=== PATIENT | female | born 1960 | race Caucasian/White ===

== ENCOUNTER 2017-10-25 06:34 | Outpatient (CLI) | payer OTHER ==
[~2017-10-25] VITALS: Ht 172.7 cm; Wt 60.0 kg
--- NOTE | ~2017-10-25 | TEE ---
PATIENT:ERICK STERLING MEDICAL RECORD: [id number] LOCATION:D.[facility] AGE OF PATIENT: 57 ADMISSION DATE: 10/25/17 SEX: F REFERRING PHYSICIAN: INTERPRETING PHYSICIAN: KAREN LUNDBERG MD TRANSESOPHAGEAL ECHOCARDIOGRAM Date: 10/25/17 ISIDRA CHARGE Y INDICATIONS: AFIB, ASSESS FOR CLOTS PRE-CARDIOVERSION PREMEDICATIONS: PATIENT'S RESPONSE PROCEDURE DOPPLER MEASUREMENTS: LVIT LA PA RA LVOT RVOT Asc. Ao AV Gradient Peak AV Mean AV Area MV Gradient Peak MV Mean MV Area INTERPRETATION: Doppler: 2-D: NO CLOTS SEEEN COLOR FLOW DOPPLER NORMAL SALINE STUDY: MISCELLANOUS: DIAGNOSIS: PLAN: PROCEED WITH CARDIOVERSION Telecommunications Analyst:Hector Lundberg Material Attendant: Christopher ELLINGTON COMMENTS: DATE OF SERVICE: PROCEDURES PERFORMED: Transesophageal echocardiogram and elective cardioversion. DESCRIPTION OF PROCEDURE: The patient was brought into the cardiac catheterization lab in stable condition in supine position on the gurney. The patient had anterior and posterior pads placed and topical anesthetic given initially for a transesophageal echocardiogram. We were able to advance the TRANSESOPHAGEAL ECHOCARDIOGRAM REPORT [id number] ERICK STERLING transesophageal probe into the mid esophageal level at 30 cm and visualized the left atrial appendage without any difficulty. We were able to visualize and document pulse wave activity greater than 50 and there was no Rouleaux formation or spontaneous echo contrast visualized and that portion of the exam was terminated. We were then able to turn our attention to cardioversion. We were able to sedate the patient with 4 of Versed and 50 of fentanyl and 100 joules of biphasic energy past, the patient initially converted into a sinus rhythm for about 1 minute and then reverted to atrial flutter. We then administered Corvert and verified QT interval prolongation and went to 200 joules of biphasic energy and we were unable to convert into a rhythm. We then readjusted the pads and applied counter pressure and went to 275 joules in biphasic fashion. However, we were still unsuccessful in converting to a sinus rhythm and the procedure was terminated unsuccessfully. IMPRESSION: The patient has atrial flutter with unsuccessful attempt at cardioversion. We will continue anticoagulation and refer to electrophysiology for advanced therapies for reversion to sinus rhythm. TRANSINT:[id number] Voice Confirmation ID: [id number] DOCUMENT ID: [id number] at [id number] CC: [id number] DICTATION DATE: 10/25/17905 FINGERPRINTER: 10/25/17 1140 DEP CLI 10/25/17 [place] [id number] [place] [id number]
--- NOTE | ~2017-10-25 | HEMODYNAMI ---
PATIENT:ERICK STERLING MEDICAL RECORD: [id number] : 62 LOCATION:D.[facility] ADMISSION DATE: 10/25/17 Generatedon:10/25/20179:17 Patient name: ERICK STERLING Patient #: [id number] SSN: : 1960 Date of study: 10/25/2017 Page: Of Hemodynamic Procedure Report Patient Data Patient Demographics Procedure consent was obtained First Name: ERICK Gender: Female Last Name: HALLIE : 1960 Patient #: [id number] Age: 57 year(s) Race: Unknown Additional ID: [id number] Contact details Address: [place] [address] State: [place] City: [place] Zip code: [address] Admission Admission Data Admission Date: 10/25/2017 Admission Time: 6:34 Procedure Procedure Types Cath Procedure Diagnostic Procedure Cardioversion External ISIDRA Sedation Charges Moderate Sedation up to 30 minutes Procedure Description Procedure Date Procedure Date: 10/25/2017 Procedure Start Time: 0:00 Procedure Staff Name Function Ayush Lundberg MD Performing Physician Farnaz Costa RT Monitor Marianne Pennington RT Scrub Alex Fernandez RN Nurse Franc Mcgill Relocation Manager Procedure Data Cath Procedure Fluoroscopy Diagnostic fluoroscopy Total fluoroscopy Time: 0 time: 0 min min Diagnostic fluoroscopy Total fluoroscopy dose: 0 dose: 0 mGy mGy Contrast Material Contrast Material Type Amount (ml) Isovue 300 0 Estimated blood loss: 0 ml Procedure Complications No complications Procedure Medications Medication Administration Route Dosage Versed I.V. 2 mg Fentanyl I.V. 25 mcg Versed I.V. 2 mg Fentanyl I.V. 25 mcg Versed I.V. 1 mg Versed I.V. 1 mg Corvert (1mg/100ml I.V. drip 0.5 mg NS) Versed I.V. 2 mg Versed I.V. 1 mg Versed I.V. 1 mg Oxygen etCO2 Nasal cannula 2 l/min unlisted medication unlisted medication Hemodynamics Rest Heart Rate: 99 (bpm) Snapshots Pre Cath Intra NCS Post Cath Vital Signs Time Heart Resp SPO2 etCO2 NIBP (mmHg) Rhythm Pain Sedation Rate (ipm) (%) (mmHg) Status Level (bpm) 8:22:10 95 19 98 0 124/81(88) A-Flutter 0 (11) 10(A) , No pain 8:27:09 104 18 95 24.1 Measuring A-Flutter 0 (11) 10(A) , No pain 8:27:50 95 29 98 12.8 Disturbed A-Flutter 0 (11) 10(A) , No pain 8:29:26 95 26 93 25.6 116/83(88) A-Flutter 0 (11) 10(A) , No pain 8:33:32 74 19 100 21.1 125/74(100) A-Flutter 0 (11) 10(A) , No pain 8:37:40 91 20 100 13.5 116/76(94) A-Flutter 0 (11) 9(A) , No pain 8:41:46 90 18 99 25.6 128/75(99) A-Flutter 0 (11) 9(A) , No pain 8:45:50 86 14 100 27.9 125/91(106) A-Flutter 0 (11) 9(A) , No pain 8:49:55 96 14 99 0 119/80(98) A-Flutter 0 (11) 9(A) , No pain 8:53:59 78 14 100 24.9 125/80(103) A-Flutter 0 (11) 9(A) , No pain 8:58:07 97 16 100 28.6 126/75(99) A-Flutter 0 (11) 9(A) , No pain 9:02:13 88 17 100 36.2 116/78(103) A-Flutter 0 (11) 10(A) , No pain Medications Time Medication Route Dose Verified Delivered Reason Notes Effective ness by by 8:20:56 Oxygen etCO2 2 Ayush Buffie used for Nasal l/min Tamika Fernandez floor service worker spring cannula 8:21:28 visc. gargle Ayush Buffie used for lidocaine Tamika Fernandez floor service worker spring 8:21:53 maalox gargle Ayush Buffie used for Tamika Fernandez floor service worker spring 8:29:01 Versed I.V. 2 mg Ayush Buffie for Norelsy Fernandez RN sedation 8:29:07 Fentanyl I.V. 25 mcg Ayush Buffie for Norelsy Fernandez RN sedation 8:31:44 Versed I.V. 2 mg Ayush Buffie for Norelsy Fernandez RN sedation 8:34:27 Fentanyl I.V. 25 mcg Ayush Buffie for Norelsy Fernandez RN sedation 8:34:32 Versed I.V. 1 mg Ayush Buffie for Norelsy Fernandez RN sedation 8:36:58 Versed I.V. 1 mg Ayush Buffie for Norelsy Fernandez RN sedation MD 8:43:03 Corvert I.V. 0.5 mg Ayush Buffie Per (1mg/100ml drip Tamika Fernandez RN physician NS) 8:49:44 Versed I.V. 2 mg Ayush Buffie for Norelsy Fernandez RN sedation 8:55:34 Versed I.V. 1 mg Ayush Buffie for Norelsy Fernandez RN sedation 9:57:10 Versed I.V. 1 mg Ayush Buffie for Norelsy Fernandez RN sedation Procedure Log Time Note 8:01:34 Informed consent obtained and on chart 8:01:39 Diagnostic Cath Status : Elective 8:02:19 Alex Fernandez RN sent for patient. Start room use. 8:02:20 Time tracking: Regular hours (M-F 7:00 - 5:00) 8:02:26 Plan of Care:Hemodynamics will remain stable., Cardiac rhythm will remain stable., Comfort level will be maintained., Respiratory function will remain adequate., Patient/ family verbilizes understanding of procedure., Procedure tolerated without complication., Recovers from procedure without complications.. 8:17:38 Patient received from Pre/Post Procedure Room to CCL 3 Alert and oriented. Tansferred to table in Supine position. 8:17:39 Warm blankets applied, and cely hugger turned on for patient comfort. 8:17:40 Correct patient and procedure confirmed by team. 8:17:40 ECG and BP/O2 sat monitors applied to patient. 8:20:56 Oxygen 2 l/min etCO2 Nasal cannula was administered by Alex Fernandez RN; used for procedure; 8:21:03 Vital chart was started 8:21:06 Baseline sample Acquired. 8:21:11 Rhythm: atrial flutter 8:21:13 Full Disclosure recording started 8:21:17 H&P Date Dictated: 10/25/2017 Within 30 days and on chart., H&P Addendum completed by physician on day of procedure. (MUST COMPLETE FOR ALL OUTPATIENTS). 8:21:19 Pre-procedure instructions explained to patient. 8:21:19 Pre-op teaching completed and patient verbalized understanding. 8:21:21 Family in waiting room. 8:21:22 Patient NPO since Midnight. 8:21:24 Is the patient allergic to Iodine/contrast media? No. 8:21:25 Was the patient premedicated? No 8:21:28 visc. lidocaine gargle was administered by lAex Fernandez RN; used for procedure; 8:21:53 maalox gargle was administered by Alex Fernandez RN; used for procedure; 8:22:21 Is patient on blood thinner?Yes 8:22:24 ACC The patient was administered the following blood thiners within the last 24 hours: Eliquis 8:22:28 Patient diabetic? Yes. 8:22:30 If diabetic: On Metformin? No 8:22:32 Previous problem with sedation/anesthesia? No ? 8:22:34 Snore? Yes 8:22:35 Sleep apnea? No 8:22:36 Deviated septum? No 8:22:37 Opens mouth fully? Yes 8:22:37 Sticks out tongue? Yes 8:22:39 Airway obstruction? No ? 8:22:43 Dentures? No ? 8:22:53 IV patent on arrival in left forearm with 0.9% NaCl at [facility]. 8:22:56 Lab results completed and on chart. 8:23:01 Alarms reviewed by R. N. 8:23:01 Sharps counted by scrub and verified by R.N. 8:23:02 Physician arrived 8:23:02 --------ALL STOP TIME OUT------ 8:23:04 Final Timeout: patient, procedure, and site verified with staff and physician. All members of the team are in agreement. 8:23:12 Physical assessment completed. ASA score P 2 - A patient with mild systemic disease as per Ayush Lundberg MD. 8:23:24 Sedation plan: IV Moderate Sedation Medication:Versed, Fentanyl 8:23:44 Franc Mcgill Rocket Motor Tester present for ISIDRA. 8:23:54 Quick combo pads placed on patients chest and back. 8:24:00 ISIDRA started. 8:27:04 ISIDRA completed. 8:29:01 Versed 2 mg I.V. was administered by Alex Fernandez RN; for sedation; 8:29:07 Fentanyl 25 mcg I.V. was administered by Alex Fernandez RN; for sedation; 8:31:44 Versed 2 mg I.V. was administered by Alex Fernandez RN; for sedation; 8:32:50 Defibrillator synced and charged to 100 Joules. 8:34:27 Fentanyl 25 mcg I.V. was administered by Alex Fernandez RN; for sedation; 8:34:32 Versed 1 mg I.V. was administered by Alex Fernandez RN; for sedation; 8:36:58 Versed 1 mg I.V. was administered by Alex Fernandez RN; for sedation; 8:39:04 Shock delivered. 8:43:03 Corvert (1mg/100ml NS) 0.5 mg I.V. drip was administered by Alex Fernandez RN; Per physician; 8:46:17 Unsuccessful cardioversion. 8:46:23 Defibrillator synced and charged to 200 Joules. 8:49:44 Versed 2 mg I.V. was administered by Alex Fernandez RN; for sedation; 8:50:00 Shock delivered. 8:55:00 Defibrillator synced and charged to 275 Joules. 8:55:34 Versed 1 mg I.V. was administered by Alex Fernandez RN; for sedation; 8:58:17 Shock delivered. 9:01:21 Unsuccessful cardioversion. 9::29 Procedure ended.(Physican Out) 9:01:48 Fluoroscopy time 00.00 minutes. 9::51 Fluoroscopy dose: 0 mGy 9::51 Flurop Dose total: 0 9::55 Contrast amount:Isovue 300 0ml. 9:02:02 Sharps counted by scrub and verified by R.N. 9:02:05 Insertion/operative site no bleeding no hematoma. 9:02:11 Post procedure rhythm: unchanged. 9:02:14 Estimated blood loss: 0 ml 9:02:16 Post procedure instruction explained to patient.Patient verbalizes understanding. 9:02:16 Patient needs reinforcement of post procedure teaching. 9:02:30 Procedure type changed to Cath procedure, Diagnostic procedure, Cardioversion External, ISIDRA, Sedation Charges, Moderate Sedation up to 30 minutes 9:02:30 Procedure and supply charges have been captured, reviewed, submitted and are correct. 9:02:36 Procedure Complication : No complications 9:02:38 Vital chart was stopped 9:02:38 See physician's report for complete and final results. 9:02:40 Report given to Pre/Post Procedure Room. 9:02:43 Patient transfered to Pre/Post Procedure Room with Stretcher. 9:02:58 End room use (Document Last) 9:57:10 Versed 1 mg I.V. was administered by Alex Fernandez RN; for sedation; Signature Audit [place] Stage Time Signature Unsigned Intra-Procedure 10/25/2017 Farnaz Costa 9:16:48 AM RT(R) Signatures Monitor : Farnaz Costa RT Signature : Date : Time : [facility] [address] [id number]
[2017-10-25] MEDS ORDERED: BAYER CHEWABLE81 MG PO (07:31)
[2017-10-25] MEDS ORDERED: FLINTSTONE1 TAB.CHEW PO (07:31)
[2017-10-25] MEDS ORDERED: NORVASC5 MG PO (07:32)
[2017-10-25] MEDS ORDERED: SYNTHROID125 MCG PO (07:32)
[2017-10-25] MEDS ORDERED: COZAAR50 MG PO (07:32)
[2017-10-25] MEDS ORDERED: EFFEXOR XR150 MG PO (07:32)
[2017-10-25] MEDS ORDERED: VALTREX500 MG PO (07:33)
[2017-10-25] MEDS ORDERED: WELLBUTRIN XL150 M1 PO (07:33)
[2017-10-25] MEDS ORDERED: VITAMIN D31000 UNIT PO (07:34)
[2017-10-25 07:45] VITALS: BP 139/85; Ht 172.7 cm; Wt 60.0 kg
[2017-10-25 08:04] LABS: BASOPHILS 0.7 % (0-2); EOSINOPHILS 0.3 % (0-7); HEMATOCRIT 32.8 % (36.0-48.0); HEMOGLOBIN 11.5 g/dL (12-16); IMMATURE GRANULOCYTES 0.2 % (0-5); LYMPHOCYTES 25.2 % (15-50); MCH 31.3 pg (26.0-34.0); MCHC 35.1 g/dL (31.0-37.0); MCV 89.1 fL (80.0-100.0); MONOCYTES 5.7 % (2-11); NEUTROPHILS 67.9 % (40-80); PLATELET COUNT 259 10x3/uL (130-400); RBC 3.68 10x6/uL (4.00-5.40)
[2017-10-25] MEDS ORDERED: ELIQUIS5 MG PO (08:23)
[2017-10-25 09:21] LABS: INR 1.05 (0.85-1.17); PROTIME 13.3 SECONDS (11.6-15.0)
[2017-10-25 10:00] LABS: ANION GAP 11.4 mmol/L (8-16); CALCIUM 8.9 mg/dL (8.5-10.1); CARBON DIOXIDE 25.8 mmol/L (21.0-32.0); CREATININE - SERUM 1.2 mg/dL (0.6-1.3); POTASSIUM - SERUM 4.2 mmol/L (3.5-5.1)
== END 2017-10-25 11:00 | disposition home or self-care (01) ==
LOC: D.CATH 06:34
PROVIDERS: Internal Medicine Cardiovascular Disease
DX: I48.91 Unspecified atrial fibrillation (principal); Z01.812 Encounter for preprocedural laboratory examination

== ENCOUNTER → 2017-11-14 18:20 | Outpatient (CLI) | payer OTHER ==
[2017-10-25 07:45] VITALS: BMI 20.1
[~2017-11-14 18:20] MED LIST: BAYER CHEWABLE81 MG PO; COZAAR50 MG PO; EFFEXOR XR150 MG PO; ELIQUIS5 MG PO; FLINTSTONE1 TAB.CHEW PO; NORVASC5 MG PO; SYNTHROID125 MCG PO; VALTREX500 MG PO; VITAMIN D31000 UNIT PO; WELLBUTRIN XL150 M1 PO
== END | disposition home or self-care (01) ==
LOC: D.MAMMO 11:45
DX: Z12.31 Encounter for screening mammogram for malignant neoplasm of breast (principal)

== ENCOUNTER → 2018-04-19 12:35 | Outpatient (CLI) | payer MEDICAID ==
[2017-10-25 07:45] VITALS: BMI 20.1
== END | disposition home or self-care (01) ==
LOC: D.MRI 12:35
DX: M54.2 Cervicalgia (principal)